=== PATIENT | male | born 1935 | race African-American/Black ===

== ENCOUNTER 2017-08-16 00:16 | Inpatient (IN) | payer MEDICARE, OTHER ==
[2017-08-16 01:07] LABS: ADD MAN DIFF? NO
[2017-08-16 01:14] LABS: BASO % 1 % (0-3); EOS % 0 % (0-3); HEMATOCRIT 36.9 % (39.0-53.0); LYMPH # 0.7 x10^3/uL (1.0-4.8); LYMPH % 9 % (24-48); MEAN CORPUSCULAR HEMOGLOBIN 27 pg (25-35); MEAN CORPUSCULAR HGB CONC 33 g/dL (31-37); MEAN CORPUSCULAR VOLUME 82 fL (79-100); MONO # 0.9 x10^3/uL (0.0-1.1); MONO % 14 % (0-9); NEUT # 5.4 x10^3uL (1.8-7.7); NEUT % 76 % (31-73); PLATELET COUNT 375 x10^3/uL (140-400); RED BLOOD COUNT 4.48 x10^6/uL (4.30-5.70); RED CELL DISTRIBUTION WIDTH 14.8 % (11.5-14.5)
[2017-08-16 01:37] LABS: ANION GAP 12 (6-14); BLOOD UREA NITROGEN 12 mg/dL (8-26); BUN/CREATININE RATIO 15 (6-20); CALCIUM 8.6 mg/dL (8.5-10.1); CARBON DIOXIDE 24 mmol/L (21-32); CHLORIDE 103 mmol/L (98-107); CREATININE 0.8 mg/dL (0.7-1.3); GFR 92.8; GLUCOSE 119 mg/dL (70-99); POTASSIUM 4.1 mmol/L (3.5-5.1); SODIUM 139 mmol/L (136-145)
[2017-08-16 01:38] LABS: TROPONINI < 0.017 ng/mL (0.000-0.055)
[2017-08-16 01:43] LABS: ALBUMIN 2.9 g/dL (3.4-5.0); ALBUMIN/GLOBULIN RATIO 0.8 (1.0-1.7); ALK PHOS 94 U/L (46-116); ALT (SGPT) 35 U/L (16-63); AST (SGOT) 34 U/L (15-37); TOTAL BILIRUBIN 0.2 mg/dL (0.2-1.0); TOTAL PROTEIN 6.6 g/dL (6.4-8.2)
[2017-08-16 02:14] LABS: LACTIC ACID 1.4 mmol/L (0.4-2.0)
[2017-08-16] MEDS: methylPREDNISolone SOD SUCC PF 125 MG/2 ML VIAL. IV ×2 (02:16)
[2017-08-16] MEDS: IBUPROFEN 800 MG TABLET. PO ×2 (02:30)
[2017-08-16] MEDS: AZITHRMYCN 500MG IVPB FOR OMNI 250 ML IV ×2 (02:47)
[2017-08-16 03:57] LABS: INFLUENZA A PATIENT NEGATIVE (NEGATIVE); INFLUENZA B PATIENT NEGATIVE (NEGATIVE); OBC FLU VALID
[2017-08-16] MEDS ORDERED: ACETAMINOPHEN 325 MG TABLET. PO ×2 (04:30)
[2017-08-16] MEDS ORDERED: ONDANSETRON PF 4 MG/2 ML VIAL. IV ×2 (04:30)
[2017-08-16] MEDS: IPRATRPIUM/ALBUTEROL 0.5/2.5MG 3 ML NEBU. NEB ×12 (07:40→19:52)
[2017-08-16] MEDS ORDERED: ALBUTEROL SULFATE 2.5 MG/3 ML NEBU. NEB ×2 (09:30)
[2017-08-16] MEDS: DORZOLAMIDE 2% OPHTH SOLUTION 10ML BOTTLE. OU ×4 (10:34→21:17)
[2017-08-16] MEDS: BRIMONIDINE 0.2% OPHTH SOLUTION 5ML BOTTLE. OU ×4 (10:34→21:18)
[2017-08-16] MEDS: MONTELUKAST SODIUM 10 MG TABLET. PO ×2 (10:35)
[2017-08-16] MEDS: ASPIRIN CHEWABLE 81 MG TABLET. PO ×2 (10:35)
[2017-08-16] MEDS: methylPREDNISolone SOD SUCC PF 40 MG/ML VIAL. IV ×6 (10:35→21:17)
[2017-08-16] MEDS: TAMSULOSIN 0.4 MG CAP.ER.24H. PO ×2 (10:35)
[2017-08-16] MEDS: BUDESONIDE 0.5 MG/2 ML NEBU. NEB ×4 (11:35→19:52)
[2017-08-16] MEDS: PANTOPRAZOLE 40 MG TABLET.DR. PO ×2 (12:12)
[2017-08-16] MEDS: ENOXAPARIN 30 MG/0.3 ML SYRINGE. SQ ×2 (12:13)
[2017-08-16] MEDS ORDERED: NON FORMULARY ITEM (Ipratropium/Albuterol Sulfate (Combivent Respimat Inhal) 2 INH) IH ×2 (13:00)
[2017-08-16] MEDS ORDERED: NON FORMULARY ITEM (Fluticasone/Salmeterol (Advair 100-50 Diskus) 2 PUFF) IH ×2 (21:00)
[2017-08-16] MEDS ORDERED: NON FORMULARY ITEM (Brinzolamide/Brimonid Tart (Simbrinza 1%-0.2% Eye Drops) 8 ML) OP ×2 (21:00)
[2017-08-16] MEDS: ATORVASTATIN CALCIUM 10 MG TABLET. PO ×2 (21:17)
[2017-08-17 04:46] LABS: HEMATOCRIT 33.1 % (39.0-53.0); HEMOGLOBIN 10.8 g/dL (13.0-17.5); MEAN CORPUSCULAR HEMOGLOBIN 27 pg (25-35); MEAN CORPUSCULAR HGB CONC 33 g/dL (31-37); MEAN CORPUSCULAR VOLUME 82 fL (79-100); PLATELET COUNT 407 x10^3/uL (140-400); RED BLOOD COUNT 4.05 x10^6/uL (4.30-5.70); RED CELL DISTRIBUTION WIDTH 14.6 % (11.5-14.5); WHITE BLOOD COUNT 11.7 x10^3/uL (4.0-11.0)
[2017-08-17 05:01] LABS: ANION GAP 10 (6-14); BLOOD UREA NITROGEN 27 mg/dL (8-26); CALCIUM 9.5 mg/dL (8.5-10.1); CARBON DIOXIDE 24 mmol/L (21-32); CHLORIDE 104 mmol/L (98-107); CREATININE 1.1 mg/dL (0.7-1.3); GFR 77.7; GLUCOSE 144 mg/dL (70-99); POTASSIUM 4.5 mmol/L (3.5-5.1); SODIUM 138 mmol/L (136-145)
[2017-08-17] MEDS: methylPREDNISolone SOD SUCC PF 40 MG/ML VIAL. IV ×4 (05:43→14:28)
[2017-08-17] MEDS: BUDESONIDE 0.5 MG/2 ML NEBU. NEB ×4 (08:04→19:27)
[2017-08-17] MEDS: IPRATRPIUM/ALBUTEROL 0.5/2.5MG 3 ML NEBU. NEB ×8 (08:04→19:27)
[2017-08-17] MEDS: IOHEXOL 300 MG/ML 50 ML VIAL. PO ×2 (08:30)
[2017-08-17] MEDS ORDERED: CONTRAST GIVEN MC ×4 (08:30→12:00)
[2017-08-17] MEDS: IOHEXOL 240 MG/ML 100 ML VIAL. IV ×2 (08:30)
[2017-08-17 08:57] LABS: SEDIMENTATION RATE 65 (0-15)
[2017-08-17] MEDS: TAMSULOSIN 0.4 MG CAP.ER.24H. PO ×2 (11:06)
[2017-08-17] MEDS: ASPIRIN CHEWABLE 81 MG TABLET. PO ×2 (11:06)
[2017-08-17] MEDS: MONTELUKAST SODIUM 10 MG TABLET. PO ×2 (11:06)
[2017-08-17] MEDS: PANTOPRAZOLE 40 MG TABLET.DR. PO ×2 (11:06)
[2017-08-17] MEDS: BRIMONIDINE 0.2% OPHTH SOLUTION 5ML BOTTLE. OU ×2 (11:08)
[2017-08-17] MEDS: DORZOLAMIDE 2% OPHTH SOLUTION 10ML BOTTLE. OU ×2 (11:08)
[2017-08-17] MEDS: ENOXAPARIN 30 MG/0.3 ML SYRINGE. SQ ×2 (11:14)
[2017-08-17] MEDS: IOHEXOL 300 MG/ML 100ML VIAL. IV ×2 (12:00)
[2017-08-17] MEDS: IOHEXOL 240 MG/ML 50ML VIAL. PO ×2 (12:00)
[2017-08-18] MEDS: ATORVASTATIN CALCIUM 10 MG TABLET. PO ×4 (00:44→19:46)
[2017-08-18] MEDS: methylPREDNISolone SOD SUCC PF 40 MG/ML VIAL. IV ×8 (00:44→19:45)
[2017-08-18] MEDS: DORZOLAMIDE 2% OPHTH SOLUTION 10ML BOTTLE. OU ×6 (00:44→19:46)
[2017-08-18] MEDS: BRIMONIDINE 0.2% OPHTH SOLUTION 5ML BOTTLE. OU ×6 (00:45→19:46)
[2017-08-18] MEDS ORDERED: CONTRAST GIVEN MC ×2 (06:45)
[2017-08-18] MEDS ORDERED: IOHEXOL 300 MG/ML 100ML VIAL. IV ×2 (07:00)
[2017-08-18] MEDS: BUDESONIDE 0.5 MG/2 ML NEBU. NEB ×4 (07:39→18:30)
[2017-08-18] MEDS: IPRATRPIUM/ALBUTEROL 0.5/2.5MG 3 ML NEBU. NEB ×8 (07:40→18:30)
[2017-08-18] MEDS: PANTOPRAZOLE 40 MG TABLET.DR. PO ×2 (08:19)
[2017-08-18] MEDS: TAMSULOSIN 0.4 MG CAP.ER.24H. PO ×2 (09:10)
[2017-08-18] MEDS: ASPIRIN CHEWABLE 81 MG TABLET. PO ×2 (09:10)
[2017-08-18] MEDS: MONTELUKAST SODIUM 10 MG TABLET. PO ×2 (09:10)
[2017-08-18] MEDS: ENOXAPARIN 30 MG/0.3 ML SYRINGE. SQ ×2 (11:51)
== END 2017-08-18 20:15 | disposition home or self-care (01) | DRG 871 ==
LOC: ER 00:16 → 5 NORTH 02:00
DX: A41.9 Sepsis, unspecified organism (principal); E43 Unspecified severe protein-calorie malnutrition; J96.20 Acute and chronic respiratory failure, unspecified whether with hypoxia or hypercapnia; J18.9 Pneumonia, unspecified organism; J44.0 Chronic obstructive pulmonary disease with (acute) lower respiratory infection; I73.9 Peripheral vascular disease, unspecified; K55.1 Chronic vascular disorders of intestine; J44.1 Chronic obstructive pulmonary disease with (acute) exacerbation; R64 Cachexia; Z68.1 Body mass index [BMI] 19.9 or less, adult; J20.9 Acute bronchitis, unspecified; E78.5 Hyperlipidemia, unspecified; F17.210 Nicotine dependence, cigarettes, uncomplicated; I10 Essential (primary) hypertension; I70.1 Atherosclerosis of renal artery; K21.9 Gastro-esophageal reflux disease without esophagitis; N40.0 Benign prostatic hyperplasia without lower urinary tract symptoms; M19.90 Unspecified osteoarthritis, unspecified site; Z77.090 Contact with and (suspected) exposure to asbestos; Z79.82 Long term (current) use of aspirin; Z79.899 Other long term (current) drug therapy; Z82.49 Family history of ischemic heart disease and other diseases of the circulatory system; Z85.118 Personal history of other malignant neoplasm of bronchus and lung; Z90.2 Acquired absence of lung [part of]
CPT/HCPCS: 36415; 71045; 71260; 74177; 80048; 80053; 83605; 84484; 85025; 85027; 85651; 87040; 87804; 87804-59; 93005; 94640; 94760; 96372; 97110-GP; 97116-GP; 97162-GP; 97165-GO; 97530-GP; 99285; 99285-25; J0456; J0690; J1650; J2920; J2930; J7620; J7626; Q9966; Q9967